=== PATIENT | male | born 1990 | race Caucasian/White ===

== ENCOUNTER 2018-12-18 19:00 | Emergency (ER) | payer SELFPAY | END 2018-12-18 19:43 | disposition home or self-care (01) | LOC: MADERS 19:00 | DX: L03.311 Cellulitis of abdominal wall (principal); F17.210 Nicotine dependence, cigarettes, uncomplicated | CPT/HCPCS: 99283 ==

== ENCOUNTER 2019-01-22 15:37 | Emergency (ER) | payer SELFPAY ==
[2019-01-22] MEDS ORDERED: Ketorolac Tromethamine 60 MG/2 ML VIAL ONE (16:21)
== END 2019-01-22 16:30 | disposition home or self-care (01) ==
LOC: MADERS 15:37
DX: S39.011A Strain of muscle, fascia and tendon of abdomen, initial encounter (principal); F17.210 Nicotine dependence, cigarettes, uncomplicated; G40.909 Epilepsy, unspecified, not intractable, without status epilepticus; Z79.899 Other long term (current) drug therapy; Z71.6 Tobacco abuse counseling; X50.9XXA Other and unspecified overexertion or strenuous movements or postures, initial encounter
CPT/HCPCS: 96372; 99406; J1885